=== PATIENT | female | born 1990 | race American Indian/Alaskan Native ===

== ENCOUNTER 2017-02-02 17:46 | Emergency (ER) | payer SELFPAY ==
[2017-02-02 19:56] VITALS: BP 118/85
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
== END 2017-02-02 22:51 | disposition other institution (70) ==
LOC: ED 17:46
DX: T76.21XA Adult sexual abuse, suspected, initial encounter (principal); F17.200 Nicotine dependence, unspecified, uncomplicated
CPT/HCPCS: 99284